=== PATIENT | female | born 1950 | race Native Hawaiian/Other Pacific Islander ===

== ENCOUNTER 2024-03-21 08:28 | Day surgery (SDC) | payer MEDICARE, MEDICAID ==
[~2024-03-21] VITALS: Ht 154.9 cm; Wt 65.5 kg
[2024-03-21] VITALS (11 sets, daily range): BP systolic 90–145; BP diastolic 45–87; PULSE 69–78
[~2024-03-21 08:28] MED LIST: ATOR10TA69 PO; CANA300T PO; GABA-1181 PO; LOSA-382 PO; METF-446 PO; SODIUM CHLORIDE 0.9% 1,000 ML ONE
[2024-03-21 09:05] LABS: BASOPHILS % (AUTO) 0.6 % (0.0-2.0); EOSINOPHILS % (AUTO) 5.4 % (1.0-6.0); HEMATOCRIT 43.6 % (36-46); HEMOGLOBIN 14.5 g/dL (12.0-16.0); LYMPHOCYTES # (AUTO) 1.5 K/uL (1.0-4.8); LYMPHOCYTES % (AUTO) 27.8 % (22.0-44.0); MEAN CORPUSCULAR HGB CONC 33.1 G/dL (31.0-37.0); MEAN CORPUSCULAR VOLUME 94 fL (80-100); MONOCYTES # (AUTO) 0.5 K/uL (0.1-1.0); MONOCYTES % (AUTO) 8.5 % (2.0-9.0); NEUTROPHILS # (AUTO) 3.2 K/uL (1.8-7.7); NEUTROPHILS % (AUTO) 57.7 % (40.0-70.0); PLATELET COUNT (AUTO) 200 K/uL (150-450); RED BLOOD CELL COUNT(AUTO) 4.66 MIL/uL (4.00-5.20); RED CELL DISTRIBUTION WIDTH 13.4 % (11.5-14.5); WHITE BLOOD COUNT (AUTO) 5.6 K/uL (4.5-11.0)
[2024-03-21 09:19] LABS: ANION GAP 7 mmol/L (8-16); CALCIUM, TOTAL 9.7 mg/dL (8.8-10.5); CARBON DIOXIDE 30 mmol/L (22-29); CHLORIDE 102 mmol/L (98-107); CREATININE 0.69 mg/dL (0.60-1.30); GLOMERULAR FILTR. RATE CALC > 60 mL/min (>60); GLUCOSE,RANDOM 165 mg/dL (70-110); SODIUM SERUM 139 mmol/L (136-145); UREA NITROGEN, BLOOD 28 mg/dL (7-18)
[2024-03-21 09:24] LABS: PROTHROMBIN TIME 10.9 SEC (9.4-11.6)
[2024-03-21 09:25] LABS: ALANINE AMINOTRANSFERASE 39 U/L (12-78); ALBUMIN 3.7 g/dL (3.4-5.0); ALKALINE PHOSPHATASE 100 U/L (46-116); ASPARTATE AMINOTRANSFERASE 32 U/L (15-37); BILIRUBIN,TOTAL 0.8 mg/dL (0.1-1.0); TOTAL PROTEIN, SERUM 8.3 g/dL (6.4-8.2)
[2024-03-21] MEDS: SODIUM CHLORIDE 0.9% 1,000 ML IV ONE (09:46)
[2024-03-21] MEDS ORDERED: HEPARIN SODIUM 1000 UNITS/NS 1,000 ML ONE (10:01)
[2024-03-21] MEDS ORDERED: VERAPAMIL HCL 2.5 MG/ML 2 ML VIAL ONE (10:01)
[2024-03-21] MEDS ORDERED: IOHEXOL 300 MG/ML 100 ML VIAL ONE (10:01)
[2024-03-21] MEDS ORDERED: LIDOCAINE/PF 1% 30 ML VIAL ONE (10:01)
[2024-03-21] MEDS ORDERED: NITROGLYCERIN 50 MG/D5% WATER 250 ML ONE (10:01)
[2024-03-21] MEDS ORDERED: SODIUM BICARBONATE 50 MEQ/50 ML VIAL ONE (10:01)
[2024-03-21] MEDS ORDERED: FentaNYL CITRATE PF 100 MCG/2 ML VIAL ONE (11:27)
[2024-03-21] MEDS ORDERED: MIDAZOLAM HCL 2 MG/2 ML VIAL ONE (11:28)
[2024-03-21] MEDS: IOHEXOL 300 MG/ML 100 ML VIAL IARTER ONE (12:00)
[2024-03-21] MEDS: LIDOCAINE 1% 30 ML/SOD BICARB 8.4% 4 ML SQ ONE (12:00)
[2024-03-21] MEDS: HEPARIN SODIUM 2,000 UNITS in HEPARIN SODIUM 1000 UNITS/NS 1,000 ML IARTER ONE (12:00)
[2024-03-21] MEDS: NITROGLYCERIN/D5W 50 MG/250 ML IV BOTTLE ICOR ONE ×2 (12:01→12:05)
[2024-03-21] MEDS: MIDAZOLAM HCL 2 MG/2 ML VIAL IVP ONE (12:01)
[2024-03-21] MEDS: FentaNYL CITRATE PF 100 MCG/2 ML VIAL IVP ONE (12:02)
[2024-03-21 13:06] LABS: GLUCOMETER DEV NAME(LOC) SDS.; GLUCOSE,POINT OF CARE 104 MG/DL (70-110)
== END 2024-03-21 16:38 | disposition home or self-care (01) ==
LOC: CATHLAB 08:28
PROVIDERS: ATTEND Internal Medicine Cardiovascular Disease
DX: I20.9 Angina pectoris, unspecified (principal); I10 Essential (primary) hypertension; I49.9 Cardiac arrhythmia, unspecified; E78.00 Pure hypercholesterolemia, unspecified; J18.9 Pneumonia, unspecified organism; E11.9 Type 2 diabetes mellitus without complications; M17.11 Unilateral primary osteoarthritis, right knee; R06.00 Dyspnea, unspecified; Z79.84 Long term (current) use of oral hypoglycemic drugs; Z79.899 Other long term (current) drug therapy; Z90.49 Acquired absence of other specified parts of digestive tract; Z98.891 History of uterine scar from previous surgery; Z98.890 Other specified postprocedural states
CPT/HCPCS: 93005; 80053; 82962; 85025; 85610; 85730; 36415; 99152; 93458; 76937; C1760; J3010; J1644; J3490 ×3; J2250; J7030; Q9967